=== PATIENT | male | born 1940 | race Caucasian/White ===

== ENCOUNTER 2019-02-20 09:07 | Inpatient (IN) ==
--- NOTE | 2019-01-20 14:49 | PAT Medication Instructions ---
Medication Instructions Date of Service January 20, 2019 Home Medications ascorbic acid (vitamin C) [Vitamin C] 500 mg PO .NOON aspirin 81 mg PO HS cholecalciferol (vitamin D3) [Vitamin D3] 800 unit PO .NOON coenzyme Q10 [Co Q-10] 100 mg PO HS dexamethasone 4 mg PO UD levothyroxine 50 mcg PO QAM pembrolizumab [Keytruda] 25 mg IV UD rosuvastatin 5 mg PO HS Continue as directed dexamethasone 4 mg PO UD (prior to immunotherapy infusion) ASK your prescriber and surgeon pembrolizumab [Keytruda] 25 mg IV UD aspirin 81 mg PO HS STOP taking 2 weeks before surgery (or as soon as possible if surgery is within 2 weeks) coenzyme Q10 [Co Q-10] 100 mg PO HS DO NOT take the morning of surgery ascorbic acid (vitamin C) [Vitamin C] 500 mg PO .NOON cholecalciferol (vitamin D3) [Vitamin D3] 800 unit PO .NOON Take morning of surgery With a small sip of water, OTHERWISE NOTHING TO EAT OR DRINK AFTER MIDNIGHT: levothyroxine 50 mcg PO QAM Take evening before surgery rosuvastatin 5 mg PO HS Other Notes If you have any questions please call us at [phone] or [phone] or [phone] or [phone]
--- NOTE | 2019-01-21 10:55 | Anesthesiology Consultation ---
Date of Service January 21, 2019 Assessment & Plan (1) Encounter for pre-operative examination: Chart Review Chart Review: Pending: Refer to Additional Notes / Consult section (pending preop testing (labs, EKG, CXR)) and Patient seen in Pre Admission Testing Teaching & Discussion Pre-Anesthesia Teaching/Discussion Notes: Instructed NPO after midnight before surgery,except medications with 15 cc of water. Medication instructions prov ided according to the PAT guidelines. History Surgery Operation Date: 02/20/19 08:30 Proposed Procedures p Left Reverse Total Shoulder Arthroplasty - Rohan Reynaga DO Height/Weight Height: 5 ft 10 in Weight: 85.5 kg Allergies Allergy/AdvReac Type Severity Reaction Status Date / Time No Known Allergies Allergy Unknown NONE Verified 01/16/19 11:30 Medications Home Medications Medication Instructions Recorded Confirmed Last Taken ascorbic acid (vitamin C) [Vitamin 500 mg PO .NOON 01/16/19 01/16/19 Unknown C] aspirin 81 mg PO HS 01/16/19 01/16/19 Unknown cholecalciferol (vitamin D3) 800 unit PO .NOON 01/16/19 01/16/19 Unknown [Vitamin D3] coenzyme Q10 [Co Q-10] 100 mg PO HS 01/16/19 01/16/19 Unknown dexamethasone 4 mg PO UD 01/16/19 01/16/19 Unknown levothyroxine 50 mcg PO QAM 01/16/19 01/16/19 Unknown pembrolizumab [Keytruda] 25 mg IV UD 01/16/19 01/16/19 Unknown rosuvastatin 5 mg PO HS 01/16/19 01/16/19 Unknown Past Medical History Medical History GERD (gastroesophageal reflux disease) hx Hearing deficit Hypothyroidism Metastatic melanoma currently receiving immunotherapy q3 weeks (uses dexamethasone 4mg prior to infusions); patient will check with prescriber/surgeon regarding infusion timing prior to surgery* Osteoarthritis Exercise / Class Metabolic Activity II 4-5 Yardwork/Stairs/Walk up hill Past Surgical History Surgical History History of tonsillectomy Hx of colonoscopy Hx of esophagogastroduodenoscopy Hx of inguinal hernia repair RIGHT AND LEFT Hx of lymph node excision LEFT ARM PIT Hx of total hip arthroplasty RIGHT AND LEFT Hx of transurethral resection of prostate Status post re-excision of malignant skin lesion Past Anesthesia History No Hx of Anesthesia Complications and No Family Hx of Anesthesia Complications History of PONV No Hx of PONV and No Hx of Motion Sickness Social History Smoking Status: Never smoker Do You Dip or Chew Tobacco: No Hx Alcohol Use: Yes Alcohol type: beer alcohol intake frequency: holidays/special occasions only Hx Substance Use: No substance use type: does not use Review of Systems Hx reflux. Patient denies chest pain, shortness of breath, dyspnea on exertion, cough, wheezing, palpitations. Physical Exam Vital Signs VITALS BP 126/77 P 53 (baseline HR 50-60 range; asymptomatic) TEMP 97.5 SP02 97%RA RESP 18 PHYSICAL Full neck and c-spine range of motion. Full TMJ range of motion. TMD 3.5 finger breaths Mallampati Score 2 Dentition: intact Lungs: clear throughout to auscultation Cardiac: regular rate and rhythm, no murmurs noted Spine: normal Carotid arteries: negative bruit Extremities: no edema
--- NOTE | 2019-01-21 11:36 | XRay Report ---
XR chest Pre-admission PA/Lat CLINICAL HISTORY: Preoperative chest COMPARISON STUDY: 08/12/2009 FINDINGS: The cardiac and mediastinal contours are normal. There is no focal pulmonary consolidation. There is no failure. There are no pleural effusions. There is minimal left basilar atelectasis. 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 Arthritic changes are present within the shoulders.[ IMPRESSION: No active disease in the chest. Electronically signed by: Chris Roberts M.D. 01/21/2019 11:35 AM
[2019-01-21 13:14] LABS: Basophils # (auto) 0.01 K/uL (0-0.2); Basophils % (auto) 0.2 %; Eosinophils % (auto) 2.1 %; Hematocrit (blood only) 41.6 % (42-52); Hemoglobin 13.7 g/dL (14.0-18.0); Lymphocytes % (auto) 33.3 %; Mean Corpuscular Hemoglobin 30.3 pg (25-34); Mean Corpuscular Hgb Conc 32.9 g/dL (32-36); Mean Platelet Volume 8.8 fL (7.4-10.4); Monocytes # (auto) 0.78 K/uL (0.11-0.59); Monocytes % (auto) 16.3 %; Neutrophils # (auto) 2.31 K/uL (1.4-6.5); Neutrophils % (auto) 48.1 %; Platelet Count 123 K/uL (130-400); RDW Coefficient of Variation 14.2 % (11.5-14.5); RDW Standard Deviation 48.2 fL (36.4-46.3); Red Blood Count 4.52 M/uL (4.7-6.1)
[2019-01-21 13:24] LABS: BUN Creatinine Ratio 32.7 (10-20); Calcium 8.6 mg/dl (8.5-10.1); Creatinine Clr Calc Pharmacy 79.8 ml/min; Est GFR (African American) 99.9; Est GFR (Non-African American) 86.2; Potassium 3.9 mmol/L (3.5-5.1)
[2019-01-21 13:30] LABS: Partial Thromboplastin Time 26.1 Seconds (21.0-31.0); Prothrombin Time 10.1 Seconds (9.0-12.0)
--- NOTE | 2019-02-20 06:46 | History & Physical Report ---
Date of Service February 20, 2019 History of Present Illness Chief Complaint: Rotator cuff arthropathy of the left shoulder Primary Care Provider: Jacey Dykes DO D[place]en is a pleasant 78-year-old male who is been dealing with chronic increasing left shoulder pain. X-rays and clinical examination have been diagnostic for advancing osteoarthritis of the left shoulder. He has very limited range of motion. After failing conservative treatment, he has elected to proceed with a left shoulder arthroplasty. Allergies Allergy/AdvReac Type Severity Reaction Status Date / Time No Known Allergies Allergy Unknown NONE Verified 01/16/19 11:30 Home Medications Home Medications Medication Instructions Recorded Confirmed Type ascorbic acid (vitamin C) [Vitamin 500 mg PO .NOON 01/16/19 01/16/19 History C] aspirin 81 mg PO HS 01/16/19 01/16/19 History cholecalciferol (vitamin D3) 800 unit PO .NOON 01/16/19 01/16/19 History [Vitamin D3] coenzyme Q10 [Co Q-10] 100 mg PO HS 01/16/19 01/16/19 History dexamethasone 4 mg PO UD 01/16/19 01/16/19 History levothyroxine 50 mcg PO QAM 01/16/19 01/16/19 History pembrolizumab [Keytruda] 25 mg IV UD 01/16/19 01/16/19 History rosuvastatin 5 mg PO HS 01/16/19 01/16/19 History Past Med/Surg History Medical History GERD (gastroesophageal reflux disease) hx Hearing deficit Hypothyroidism Metastatic melanoma currently receiving immunotherapy q3 weeks (uses dexamethasone 4mg prior to infusions); patient will check with prescriber/surgeon regarding infusion timing prior to surgery* Osteoarthritis Surgical History History of tonsillectomy Hx of colonoscopy Hx of esophagogastroduodenoscopy Hx of inguinal hernia repair RIGHT AND LEFT Hx of lymph node excision LEFT ARM PIT Hx of total hip arthroplasty RIGHT AND LEFT Hx of transurethral resection of prostate Status post re-excision of malignant skin lesion Social History Preferred Language: [place] Communication Ability: Effective 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 Beliefs That Will Affect Care: None Current Living Situation: Spouse Feels Safe at Home: Yes Smoking Status: Never smoker Second Hand Exposure: No ; Hx Alcohol Use: Yes Alcohol type: beer Hx Substance Use: No Review of Systems All systems reviewed & are unremarkable except as noted in HPI & below Physical Exam Constitutional: WD/WN, vitals as above Eyes: PERRL, conjunctivae normal, anicteric sclerae ENMT: external ear and nose normal, oropharynx normal Neck: trachea midline, no thyromegaly Respiratory: normal respiratory effort Cardiovascular: RRR, no murmur, no edema Gastrointestinal (Abdomen): normal bowel sounds, soft, nontender, no hepatosplenomegaly Musculoskeletal: Physical examination of the left shoulder reveals decreased range of motion and significant weakness. There is tenderness palpation along the anterior glenohumeral joint line. The right upper extremity is neurovascularly intact. Psychiatric: A+Ox3, euthymic affect Results & Data Diagnostic Findings Radiographs of the left shoulder show some signs of osteoarthritis with blunting of the greater tuberosity and some superior migration of the humeral head on the glenoid.
--- NOTE | 2019-02-20 06:54 | History & Physical Report ---
Date of Service February 20, 2019 Assessment & Plan (1) Osteoarthritis of left shoulder: We will proceed with a left shoulder arthroplasty. I will decide intraoperatively whether it will be a anatomic shoulder replacement or a reverse shoulder replacement. Postoperatively he will be placed in an arm sling and kept overnight in the hospital for postoperative medical management. He plans to use community home nursing up in [place] upon discharge. Present on Admission?: Yes History of Present Illness Chief Complaint: Primary osteoarthritis of the left shoulder Primary Care Provider: Jacey Dykes DO [place]en is a pleasant 78-year-old male who is been dealing with chronic increasing left shoulder pain. X-rays and clinical examination have been diagnostic for primary osteoarthritis of the left shoulder. After failing conservative treatment, he has elected proceed with a left shoulder arthr oplasty. Allergies Allergy/AdvReac Type Severity Reaction Status Date / Time No Known Allergies Allergy Unknown NONE Verified 01/16/19 11:30 Home Medications Home Medications Medication Instructions Recorded Confirmed Type ascorbic acid (vitamin C) [Vitamin 500 mg PO .NOON 01/16/19 01/16/19 History C] aspirin 81 mg PO HS 01/16/19 01/16/19 History cholecalciferol (vitamin D3) 800 unit PO .NOON 01/16/19 01/16/19 History [Vitamin D3] coenzyme Q10 [Co Q-10] 100 mg PO HS 01/16/19 01/16/19 History dexamethasone 4 mg PO UD 01/16/19 01/16/19 History levothyroxine 50 mcg PO QAM 01/16/19 01/16/19 History pembrolizumab [Keytruda] 25 mg IV UD 01/16/19 01/16/19 History rosuvastatin 5 mg PO HS 01/16/19 01/16/19 History Past Med/Surg History Medical History GERD (gastroesophageal reflux disease) hx Hearing deficit Hypothyroidism Metastatic melanoma currently receiving immunotherapy q3 weeks (uses dexamethasone 4mg prior to infusions); patient will check with prescriber/surgeon regarding infusion timing prior to surgery* Osteoarthritis Surgical History History of tonsillectomy Hx of colonoscopy Hx of esophagogastroduodenoscopy Hx of inguinal hernia repair RIGHT AND LEFT Hx of lymph node excision LEFT ARM PIT Hx of total hip arthroplasty RIGHT AND LEFT Hx of transurethral resection of prostate Status post re-excision of malignant skin lesion Social History Preferred Language: Telugu Communication Ability: Effective 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 Beliefs That Will Affect Care: None Current Living Situation: Spouse Feels Safe at Home: Yes Smoking Status: Never smoker Second Hand Exposure: No ; Hx Alcohol Use: Yes Alcohol type: beer Hx Substance Use: No Review of Systems All systems reviewed & are unremarkable except as noted in HPI & below Physical Exam Constitutional: WD/WN, vitals as above Eyes: PERRL, conjunctivae normal, anicteric sclerae ENMT: external ear and nose normal, oropharynx normal Neck: trachea midline, no thyromegaly Respiratory: normal respiratory effort Cardiovascular: RRR, no murmur, no edema Gastrointestinal (Abdomen): normal bowel sounds, soft, nontender, no hepatosplenomegaly Musculoskeletal: Physical examination of the left shoulder reveals decreased range of motion and crepitis throughout. There is good strength with full can testing and external rotation. There is tenderness palpation along the anterior glenohumeral joint line. The right upper extremity is neurovascularly intact. Psychiatric: A+Ox3, euthymic affect Results & Data Diagnostic Findings Radiographs of the left shoulder show osteoarthritis of the glenohumeral joint. There is joint space narrowing, osteophyte formation, and [id number] articulation.
[~2019-02-20 09:07] MED LIST: ACETAMINOPHEN 500 MG TAB PO SCH; BUPIVACAINE 0.5 % 5 MG/1 ML PF 10ML VIAL ONE; CEFAZOLIN 2000MG 2,000 MG/15 ML SYR IV SCH; GABAPENTIN 300 MG CAP PO SCH; LR 15ML/HR IV SCH; LR 60ML/HR IV SCH; ROPIVACAINE 0.5% HCL/PF 150 MG, BUPIVACAINE 0.5% MPF 30 ML, EPINEPHrine 30MG/30ML (OR U... INSTIL SCH; TRANEXAMIC ACID 1,000 MG **IV Intra-op IV SCH; TRANEXAMIC ACID 1,000 MG **IV Pre-op IV SCH
[2019-02-20] MEDS ORDERED: LIDOCAINE HCL 2% 2 ML VIAL/AMP(20MG/ML) INFIL ONE (10:03)
[2019-02-20] MEDS ORDERED: ONDANSETRON INJ 2 MG/ML 2 ML VIAL ONE ×2 (10:03→13:05)
[2019-02-20] MEDS ORDERED: fentaNYL citrate 100 MCG/2 ML VIAL ONE ×2 (10:03→11:32)
[2019-02-20] MEDS ORDERED: MIDAZOLAM HCL 1 MG/ML 2ML VIAL ONE ×2 (10:03→11:32)
[2019-02-20] MEDS ORDERED: PROPOFOL IV EMULSION 10 MG/ML 20 ML VIAL IV ONE (10:03)
--- NOTE | 2019-02-20 10:07 | History & Physical Bridge Note ---
Date of Service February 20, 2019 History & Physical Bridge Note I have examined the patient, reviewed the History & Physical and in the interval since the performance of the History & Physical I have noted the following changes of clinical significance: I added possible total shoulder arthroplasty to his consent. I explained to him the difference between a total and reverse shoulder arthroplasty. He is willing to proceed with either one.
[2019-02-20] MEDS ORDERED: ORTHO JOINT ANESTHETIC ONE (10:35)
[2019-02-20] MEDS ORDERED: fentaNYL citrate 100 MCG/2 ML VIAL IV PRN (11:36)
[2019-02-20] MEDS ORDERED: ONDANSETRON INJ 2 MG/ML 2 ML VIAL IV PRN ×2 (11:36→15:31)
[2019-02-20] MEDS ORDERED: ePHEDrine sulfate 50 MG/ML AMP IV PRN (11:36)
[2019-02-20] MEDS ORDERED: ATROPINE SULFATE 0.1 MG/ML 10ML SYR IV PRN (11:36)
--- NOTE | 2019-02-20 12:58 | Operative Report ---
Post Operative Report Pre & Post Diagnosis Operation Date: 02/20/19 11:55 Pre-Op Diagnosis: LEFT SHOULDER DEGENERATIVE JOINT DISEASE Post-Op Diagnosis: LEFT SHOULDER DEGENERATIVE JOINT DISEASE I identified the patient and participated in the time-out.: Yes Procedure Operation Date: 02/20/19 11:55 Actual Procedures p Left Total Shoulder Arthroplasty(Left) - oRhan Reynaga DO Surgeon Rohan Reynaga, Liquid Center Assembler Rohan Cabrera PAC Estimated Blood Loss 200 Findings Consistent with Post-Op Diagnosis Specimens Left humeral head Complications none Disposition Disposition: Recovery Room Indications Darien is a pleasant 78-year-old male who presented my office with complaints of tonic increasing left shoulder pain. X-rays and clinical examination were diagnostic for primary osteoarthritis of the left shoulder. After failing conservative treatment, he elected proceed with a left total shoulder arthroplasty. Description of Procedure Implants used: I used a Biomet Comprehensive total shoulder arthroplasty system with a size 14 press fit mini humeral stem, a size 50 x 21 eccentric humeral head, and a large size glenoid with a Regenerex peg. The glenoid was cemented in place with Pal acos G cement. The patient arrived at [facility] for the above procedure. There were seen in the preoperative holding area and the operative extremity was identified and signed. They were given a preoperative antibiotic and an interscalene nerve block. They were taken back to the operating room, laid on table in supine position, and put under general anesthesia. They were then put into the beachchair position. The shoulder was then prepped and draped in sterile fashion. A timeout was done and the patient and the operative extremity was properly identified. A deltopectoral approach was used. Dissection was taken down through the fascia and the deltoid was retracted laterally and the conjoined tendon was retracted medially. The anterior shoulder was exposed. The long head of the biceps tendon was tenodesed to the upper border of the pectoralis major. The subscapularis was then released off the lesser tuberosity with a centimeter of cuff tissue remaining. The inferior capsule was released and the humeral head was dislocated. The rotator cuff was inspected and intact. A canal finding reamer was sent down the center of the humeral canal. Sequential reaming up to a size 14 reamer was done. Offset reamer a proximal humeral resection guide was placed. The proximal humerus was resected at 135 of inclination and 30 of retroversion. Inferior osteophytes were then removed and the glenoid was exposed. Time was spent doing an appropriate labral release. The glenoid measured to be a size large. A Biomet signature guide was then attached onto the anterior rim of the glenoid. A 3.2 mm Steinmann pin was then placed in the total shoulder arthroplasty hole. The glenoid was then reamed with a propeller reamer. The central post cutter was then used to prepare for the central boss. The cannulated peripheral peg drill guide was then placed and 3 peg holes were drilled. The final size large glenoid was then cemented in place with Palacos G cement. Surrounding soft tissues were then injected with 100 cc of an orthopedic pain control cocktail. Once cement had dried the proximal humerus was once again exposed. Sequential broaching of the humerus up to a size 14 broach was done. Off that broach a size 50 x 21 eccentric humeral head was trialed. The shoulder was then reduced, brought through a full range of motion and felt to be stable. The shoulder was then dislocated and the broach was removed. The final size 14 mini humeral stem implant was then impacted into place. A size 50 x 21 eccentric humeral head was then impacted onto the humeral stem. The shoulder was then reduced and once again brought through a full range of motion and felt to be stable. The subscapularis was then tenodesed back to the lesser tuberosity with transosseous FiberWire sutures and side to side sutures with the arm in 45 of external rotation. 2 sutures were placed in the lateral rotator interval. A dilute betadyne lavage was then done for 3 minutes. The joint was then irrigated with normal saline solution. Hemostasis was obtained. The skin was then closed with 2-0 Vicryl, 3-0V lock suture, and ellyn. A soft dressing was placed as well as a regular arm sling. The patient was then extubated and transferred to a hospital bed. There were taken to the postanesthesia care unit in stable condition. The tolerated the procedure well. I attest to the content of the Intraoperative Record and any orders documented therein. Any exceptions are noted below.
[2019-02-20] MEDS ORDERED: NEOSTIGMINE METHYLSULFATE 5 MG/5 ML SYR ONE (13:00)
[2019-02-20] MEDS ORDERED: GLYCOPYRROLATE 0.2 MG/ML VIAL ONE (13:00)
[2019-02-20] MEDS ORDERED: ePHEDrine sulfate 50 MG/ML SYR ONE (13:31)
--- NOTE | 2019-02-20 14:00 | XRay Report ---
XR shoulder LT min 2V routine CLINICAL HISTORY: Post shoulder surgery COMPARISON: CT of the left shoulder January 21, 2019 FINDINGS: Alignment of the left shoulder arthroplasty is anatomic. There is no fracture or unexpecte d radiopaque foreign body. Hardware is intact. There are skin ellyn. IMPRESSION: Expected findings following left shoulder arthroplasty. Electronically signed by: Andrae Pedroza M.D. 02/20/2019 1:59 PM
--- NOTE | 2019-02-20 14:08 | Anesthesiology Progress Note ---
Date of Service February 20, 2019 Anesthesia Post Procedure Vital Signs Vital Signs: Temp Pulse Pulse Resp BP Pulse Ox 02/20/19 14:00 36.2 C L 55 L 15 130/75 98 02/20/19 13:50 61 15 126/71 97 02/20/19 13:40 67 15 139/75 97 02/20/19 13:30 71 20 132/69 97 02/20/19 13:23 36.2 C L 67 18 123/66 96 02/20/19 09:49 36.5 C 57 L 18 150/87 H 97 Transfer of Care Handoff Completed per policy Notes Mental Status: alert / awake / arousable and participated in evaluation Patient Amnestic to Procedure: Yes Nausea / Vomiting: adequately controlled Pain: adequately controlled Airway Patency, RR, SpO2: stable & adequate BP & HR: stable & adequate Hydration State: stable & adequate Anesthetic Complications: no major complications apparent and Pt Satisfied with anesthetic care
[2019-02-20] MEDS ORDERED: bisacodyL 10 MG SUPP PR PRN (15:31)
[2019-02-20] MEDS ORDERED: NALOXONE HCL 0.4 MG/1 ML VIAL/CARP IV PRN (15:31)
[2019-02-20] MEDS ORDERED: METOCLOPRAMIDE HCL INJ 5 MG/ML 2 ML VIAL IV PRN (15:31)
[2019-02-20] MEDS ORDERED: dexAMETHasone 4 MG TAB PO SCH (15:31)
[2019-02-20] MEDS ORDERED: HYDROmorphone INJ 0.5 MG/0.5 ML SYR IV PRN (15:31)
[2019-02-20] MEDS ORDERED: MAGNESIUM HYDROXIDE SUSP 30 ML UDC PO PRN (15:31)
[2019-02-20] MEDS ORDERED: OXYCODONE HCL IR 5 MG TAB (IMMEDIATE RELEASE) PO PRN (15:31)
[2019-02-20] MEDS ORDERED: PEMBROLIZUMAB IV SCH (15:31)
[2019-02-20] MEDS: SODIUM CHLORIDE 0.9% 1000ML 1,000 ML IV SCH (16:11)
[2019-02-20] MEDS: KETOROLAC TROMETHAMINE 15 MG/ML VIAL IV SCH ×2 (16:12→21:07)
[2019-02-20] MEDS: DOCUSATE SODIUM 100 MG CAP PO SCH (20:40)
[2019-02-20] MEDS: CEFAZOLIN 2000MG 2,000 MG/15 ML SYR IV SCH (20:40)
[2019-02-20] MEDS: ACETAMINOPHEN 500 MG TAB PO SCH (20:40)
[2019-02-20] MEDS ORDERED: SENNA 8.6 MG TAB PO SCH (21:00)
[2019-02-20] MEDS ORDERED: ASPIRIN 81 MG ECTAB PO SCH (21:00)
[2019-02-20] MEDS ORDERED: ROSUVASTATIN CALCIUM 5 MG TAB PO SCH (21:00)
[2019-02-21] MEDS: SODIUM CHLORIDE 0.9% 1000ML 1,000 ML IV SCH (02:11)
[2019-02-21] MEDS: KETOROLAC TROMETHAMINE 15 MG/ML VIAL IV SCH ×2 (03:34→09:04)
[2019-02-21] MEDS: CEFAZOLIN 2000MG 2,000 MG/15 ML SYR IV SCH (03:34)
[2019-02-21] MEDS: ACETAMINOPHEN 500 MG TAB PO SCH (05:29)
[2019-02-21 05:47] LABS: Eosinophils # (auto) 0.05 K/uL (0-0.5); Eosinophils % (auto) 0.5 %; Hematocrit (blood only) 35.9 % (42-52); Immature Granulocytes # (auto) 0.01 K/uL (0.00-0.02); Immature Granulocytes % (auto) 0.1 %; Lymphocytes # (auto) 1.45 K/uL (1.2-3.4); Lymphocytes % (auto) 15.6 %; Mean Corpuscular Hemoglobin 30.2 pg (25-34); Mean Corpuscular Hgb Conc 33.4 g/dL (32-36); Mean Corpuscular Volume 90.4 fL (80-100); Mean Platelet Volume 8.7 fL (7.4-10.4); Monocytes # (auto) 1.16 K/uL (0.11-0.59); Monocytes % (auto) 12.4 %; Neutrophils # (auto) 6.65 K/uL (1.4-6.5); Neutrophils % (auto) 71.4 %; Platelet Count 117 K/uL (130-400); RDW Coefficient of Variation 13.9 % (11.5-14.5); RDW Standard Deviation 46.1 fL (36.4-46.3); Red Blood Count 3.97 M/uL (4.7-6.1); White Blood Count 9.32 K/uL (4.8-10.8)
[2019-02-21 06:16] LABS: BUN Creatinine Ratio 20.5 (10-20); Creatinine Clr Calc Pharmacy 71.8 ml/min; Est GFR (African American) 95.6; Est GFR (Non-African American) 82.5; Potassium 3.9 mmol/L (3.5-5.1)
[2019-02-21] MEDS ORDERED: LEVOTHYROXINE SODIUM 50 MCG TABLET PO SCH (06:30)
[2019-02-21] MEDS: DOCUSATE SODIUM 100 MG CAP PO SCH (07:59)
[2019-02-21] MEDS ORDERED: MULTIVITAMIN TAB PO SCH (09:00)
--- NOTE | 2019-02-21 09:19 | Orthopedic Progress Note ---
Date of Service February 21, 2019 Assessment & Plan (1) Osteoarthritis of left shoulder: Overall is doing very well. Is not having much pain in the left shoulder. He worked well today with physical therapy. He can be discharged home later today with community home nursing. He will follow-up with orthopedics in 2 weeks. Present on Admission?: Yes Subjective Darien was seen and examined at bedside this morning. Overall is doing very well. He does not have any pain in his left shoulder. He has already been seen by physical therapy and was able to ambulate and do range of motion exercises. He is ready for discharge to home. Physical Exam Musculoskeletal: On physical examination of the left shoulder, the dressing is clean and dry. His radial, median, and ulnar nerves are checked and intact his wrist. His axillary nerve is not checked yet. He is wearing a sling as instructed. Results & Data Vital Signs (Past 12 Hours) Vital Signs Temp Pulse Resp BP Pulse Ox 02/21/19 07:22 36.5 C 65 18 124/72 93 02/21/19 02:50 36.5 C 64 16 129/78 94 02/20/19 23:17 36.7 C 74 17 114/70 94 Laboratory Results H & H 01/21/19 02/21/19 Range/Units 11:08 04:58 Hgb 13.7 L 12.0 L (14.0-18.0) g/dL Hct 41.6 L 35.9 L (42-52) % Coagulation 01/21/19 Range/Units 11:08 INR 1.0 (0.9-1.1) Diagnostic Findings Postoperative x-rays of the left shoulder show the prosthesis to be in anatomic alignment without any evidence of fracture, dislocation, or loosening. PG Care Time/CCT Total # of Minutes Spent Total Time Spent with Patient: Total time spent is greater than 50% in coordination of care (as documented) at patient's floor/unit and/or counseling patient:
--- NOTE | 2019-02-21 09:21 | Discharge Summary ---
Date of Service February 21, 2019 Admission HPI Per Admitting Provider Darien is a pleasant 78-year-old male who is been dealing with chronic increasing left shoulder pain. X-rays and clinical examination have been diagnostic for primary osteoarthritis of the left shoulder. After failing conservative treatment, he has elected proceed with a left shoulder arthroplasty. Principal Diagnosis Left total shoulder arthroplasty Discharge Data Allergies Allergy/AdvReac Type Severity Reaction Status Date / Time No Known Allergies Allergy Unknown NONE Verified 01/16/19 11:30 Consultations 02/20/19 15:31 Consult Case Management - Discharge Planning Routine Procedures Performed Operation Date: 02/20/19 11:55 Actual Procedures p Left Total Shoulder Arthroplasty(Left) - Rohan Reynaga DO Ordered Studies 02/20/19 05:00 US - OR guided needle placemen Routine Hospital Course (1) Osteoarthritis of left shoulder: On February 20, 2019 Darien arrived at [facility] and underwent a left total shoulder arthroplasty without complication. He had a general anesthetic and a left interscalene nerve block. Postoperatively he was placed in an arm sling and discharged to general orthopedic floors. His hospital course is uneventful. On postop day #1 his H&H was stable and his pain was well controlled. He was able to participate well with physical therapy doing ambulation and range of motion exercises. He was then discharged to home with community home [facility]. He will follow-up with orthopedics in 2 weeks. Total Time Total Time Spent Total Time Spent (In Minutes): 20 Discharge Plan Discharge Items Patient Disposition: Home - Home Health Services Reason For Visit: LEFT SHOULDER DEGENERATIVE JOINT DISEASE Discharge Diagnosis: Left total shoulder arthroplasty Activity: As commented below Non-emergency contact: Surgeon Call non-emergency contact if: your wound has increased redness and your wound has increased drainage Follow-up/Referrals: Jacey Dykes DO [Primary Care Provider] - Diet: Regular Addtl Attending Provider Instructions: Activity and Therapy Recommendations: * If you are using [facility] then therapy will be provided at your home until they feel you have accomplished all of your goals. * If you are using [facility] then Physical Therapy will be provided until they feel you are ready to start Outpatient Physical Therapy. * If you are not using home therapy then Outpatient Physical Therapy should start about 3-5 days from your day of surgery. Therapy will last about 8-12 weeks * Wear your sling for 3 weeks, unless otherwise instructed. You may remove your sling to shower and to dress, but otherwise, you should be in your sling at all times, including while sleeping * The shoulder replacement is very stable and you can use your hand while in the sling * You were shown a series of exercises in the hospital. Do these exercises daily including the exercises you were shown in physical therapy. Medications: * Narcotic You will likely be sent home from the hospital with a prescription for the narcotic pain medication that worked best throughout your stay. * Other medications may be prescribed for specific circumstances. If you have any questions, please call the office at . * Resume previous home medications unless otherwise instructed Dressing Care: Leave the plastic dressing in place for 5 days. After 5 days you may remove the plastic dressing. If the incision is not draining then you may leave the ellyn open to air. If there is a little bit of drainage or if the ellyn are getting stuck on your clothing then cover the incision with a dry dressing. The ellyn will be removed at your 2 week follow-up appointment. Showering: You may shower with the plastic dressing in place. Let the shower spray hit the other shoulder. You can pat the plastic dry. If the dressing becomes wet underneath the plastic then simply remove the dressing. Keep the incision dry until you are 5 days out from the day of surgery. At that time you can shower with the ellyn exposed. Let the soapy shower water run over the ellyn and pat them dry. Do not scrub or soak the incision. Things To Watch For: * Drainage from the incision site that occurs more than one week after your surgery. * Increased redness at the incision site. * Fever above 102 degrees Fahrenheit. * Unusual chest pain or shortness of breath. * Call [facility] at with any of the above problems Follow-Up Visit: Follow-up with Dr. Reynaga 2-3 weeks after your day of surgery. An appointment was probably scheduled when you signed-up for surgery in the office. If you have any questions call Office Instructions: More detailed instructions as well as Frequently Asked Questions were provided in a folder by our office when you signed-up for surgery. Please review these instructions when you get home. If you have any further questions or concerns, please feel free to call the office at [phone] Pending Studies at Discharge: No Stand-Alone Forms: My [facility] Medications and DC Order Prescriptions: New oxycodone 5 mg Tablet 5 mg PO Q4H PRN (Reason: pain) Qty: 30 RF: 0 Continued ascorbic acid (vitamin C) [Vitamin C] 500 mg Tablet 500 mg PO .NOON RF: 0 dexamethasone 4 mg Tablet 4 mg PO UD RF: 0 aspirin 81 mg Tablet,Chewable 81 mg PO HS RF: 0 cholecalciferol (vitamin D3) [Vitamin D3] 400 unit Capsule 800 unit PO .NOON RF: 0 coenzyme Q10 [Co Q-10] 100 mg Capsule 100 mg PO HS RF: 0 rosuvastatin 5 mg Tablet 5 mg PO HS RF: 0 levothyroxine 50 mcg Capsule 50 mcg PO QAM RF: 0 Keytruda 25 mg/mL Solution 25 mg IV UD RF: 0 Discharge Orders: Discharge Order (Routine); Ordered 02/21/19 Ordered By: Rohan Reynaga Admission Data Admit Date/Time: 02/20/19 13:26 Attending Provider: Rohan Reynaga Admit Provider: Rohan Reynaga Primary Care Provider: Jacey Dykes
== END 2019-02-21 10:32 | disposition home health service (06) | DRG 483 ==
LOC: ASU 09:07 → 3E 13:26